=== PATIENT | male | born 1945 | race Caucasian/White ===

== ENCOUNTER 2021-08-24 15:28 | Emergency (ER) | payer MEDICARE ==
[~2021-08-24] VITALS: Ht 172.7 cm; Wt 93.4 kg
[2021-08-24 16:07] LABS: HEMATOCRIT 48.9 % (36.7-47.1); MEAN CORPUSCULAR HEMOGLOBIN 28.5 uug (23.8-33.4); MEAN CORPUSCULAR VOLUME 85.1 fL (73.0-96.2); PLATELET COUNT (AUTO) 155 K/uL (152-348)
[2021-08-24 16:14] LABS: CARBON DIOXIDE 26 mmol/L (21-32); CHLORIDE 106 mmol/L (98-107); CREATININE 0.9 mg/dL (0.6-1.3); GLUCOSE 138 mg/dL (74-106); POTASSIUM 4.1 mmol/L (3.5-5.1); UREA NITROGEN, BLOOD 23 mg/dL (7-18)
[2021-08-24 16:19] LABS: ALANINE AMINOTRANSFERASE 22 U/L (16-63); ALKALINE PHOSPHATASE 77 U/L (50-136); ASPARTATE AMINOTRANSFERASE 11 U/L (15-37); BILIRUBIN,TOTAL 0.4 mg/dL (0.2-1.0); TOTAL PROTEIN, SERUM 7.7 g/dL (6.4-8.2)
--- NOTE | 2021-08-24 16:25 | NUR ---
[email or web address], medical screening exam in progress
[2021-08-24 16:27] LABS: THYROID STIMULATING HORMONE 1.681 mIU/mL (0.358-3.740)
[2021-08-24 16:49] LABS: *BILIRUBIN,URIN NEGATIVE (NEGATIVE); *CLARITY,URINE CLEAR (CLEAR); *COLOR,URINE YELLOW (YELLOW); *KETONES,URINE 2+ (NEGATIVE); *UROBILINOGEN,URINE 0.2 E.U./dl (NORMAL); LEUKOCYTE ESTERASE ,URINE NEGATIVE (NEGATIVE); NITRITE, URINE NEGATIVE (NEGATIVE); UGLUCOSE 3+ (NEGATIVE)
[2021-08-24 16:55] LABS: *BLOOD, URINE TRACE (NEGATIVE); BACTERIA,URINE NONE SEEN /HPF (NONE SEEN); SQUAMOUS EPITHELIAL CELL,UR FEW /HPF (NONE SEEN); WBC,URINE 0-3 /HPF (0-3)
[2021-08-24] MEDS ORDERED: LINA5TAB PO (17:00)
[2021-08-24] MEDS ORDERED: ASPI-869 PO (17:00)
[2021-08-24] MEDS ORDERED: METF-442 PO (17:00)
[2021-08-24] MEDS ORDERED: DAPA10TA PO (17:00)
--- NOTE | 2021-08-24 17:10 | NUR ---
Patient is for discharged to home. Patient wants to go home but family member (spouse) does not want the patient to go home. MD notified. Written and verbal after care instructions given to patient and family. Patient verbalized understanding and compliance of instructions. Stressed follow up with primary doctor or return to ER for worsening s/s. Copies of all the tests' results provided to patient.
--- NOTE | 2021-08-24 17:27 | NUR ---
Patient was able to moved from gurney to wheelchair with minimal assist. Patient's spouse agreed to patient's disposition (discharge to home) after talking to MD.
== END 2021-08-24 17:29 | disposition home or self-care (01) ==
LOC: ER 15:28
DX: Z04.3 Encounter for examination and observation following other accident (principal); R53.1 Weakness; E11.42 Type 2 diabetes mellitus with diabetic polyneuropathy; Z79.84 Long term (current) use of oral hypoglycemic drugs; Z79.82 Long term (current) use of aspirin; R91.8 Other nonspecific abnormal finding of lung field
CPT/HCPCS: 36415; 71045; 84443; 85025; 93005; A4663